=== PATIENT | female | born 1990 | race Caucasian/White ===

== ENCOUNTER 2016-09-26 21:46 | Emergency (ER) | payer OTHER ==
[2016-09-26] MEDS ORDERED: IBUPROFEN 600 MG TABLET ONE (23:27)
== END 2016-09-26 23:40 | disposition home or self-care (01) ==
LOC: ED 21:46
DX: N61.0 Mastitis without abscess (principal); J45.909 Unspecified asthma, uncomplicated
CPT/HCPCS: 99282; 99283; A9270